=== PATIENT | female | born 1965 | race Caucasian/White ===

== ENCOUNTER 2024-09-25 03:25 | Emergency (ER) | payer OTHER ==
[~2024-09-25] VITALS: Ht 165.1 cm; Wt 100.0 kg
[2024-09-25] MEDS ORDERED: traMADol 50 MG TAB PO ONE (05:10)
[2024-09-25] MEDS: IBUPROFEN 600MG TAB PO ONE (05:33)
[2024-09-25] MEDS: traMADol 50 MG TAB (HOME DOSE PACK) PO ONE (05:34)
[2024-09-25 05:43] VITALS: BP 163/88; TEMP 99; O2SAT 99
== END 2024-09-25 06:55 | disposition home or self-care (01) ==
LOC: M ED 03:25 → EDBD 03:25 → M ED 06:55
DX: M25.562 Pain in left knee (principal); Z96.652 Presence of left artificial knee joint; X50.1XXA Overexertion from prolonged static or awkward postures, initial encounter; Y92.9 Unspecified place or not applicable; Y93.89 Activity, other specified; Y99.0 Civilian activity done for income or pay; Z88.1 Allergy status to other antibiotic agents; Z88.2 Allergy status to sulfonamides; I10 Essential (primary) hypertension; G43.909 Migraine, unspecified, not intractable, without status migrainosus